=== PATIENT | female | born 1950 | race Asian ===

== ENCOUNTER 2017-08-28 09:24 | Outpatient (CLI) | payer OTHER, MEDICARE | END 2017-08-28 18:58 | disposition home or self-care (01) | LOC: MAMMO 09:24 | DX: Z12.31 Encounter for screening mammogram for malignant neoplasm of breast (principal) ==

== ENCOUNTER 2017-11-24 09:46 | Outpatient (CLI) | payer OTHER, MEDICARE | END 2017-11-24 20:05 | disposition home or self-care (01) | LOC: LABW 09:46 | DX: M10.071 Idiopathic gout, right ankle and foot (principal); M10.072 Idiopathic gout, left ankle and foot | CPT/HCPCS: 36415; 84550; 85651 ==

== ENCOUNTER 2017-12-10 10:02 | Outpatient (CLI) | payer OTHER, MEDICARE | END 2017-12-10 23:57 | disposition home or self-care (01) | LOC: LABW 10:02 | DX: M10.071 Idiopathic gout, right ankle and foot (principal) | CPT/HCPCS: 84550; 85651 ==

== ENCOUNTER 2018-02-01 09:24 | Outpatient (CLI) | payer OTHER, MEDICARE | END 2018-02-01 20:01 | disposition home or self-care (01) | LOC: LABW 09:24 | DX: M10.071 Idiopathic gout, right ankle and foot (principal); M10.072 Idiopathic gout, left ankle and foot | CPT/HCPCS: 36415; 84550 ==

== ENCOUNTER 2018-04-16 10:50 | Outpatient (CLI) | payer OTHER, MEDICARE | END 2018-04-16 19:09 | disposition home or self-care (01) | LOC: LABW 10:50 | DX: M10.071 Idiopathic gout, right ankle and foot (principal); M10.072 Idiopathic gout, left ankle and foot | CPT/HCPCS: 36415; 84550 ==

== ENCOUNTER 2018-06-09 11:28 | Outpatient (CLI) | payer OTHER, MEDICARE | END 2018-06-09 19:30 | disposition home or self-care (01) | LOC: LABW 11:28 | DX: B35.1 Tinea unguium (principal); M10.071 Idiopathic gout, right ankle and foot; M10.072 Idiopathic gout, left ankle and foot | CPT/HCPCS: 36415; 84450; 84460; 84550 ==

== ENCOUNTER 2018-07-06 12:26 | Outpatient (CLI) | payer OTHER, MEDICARE | END 2018-07-06 22:29 | disposition home or self-care (01) | LOC: LABW 12:26 | DX: B35.1 Tinea unguium (principal); M10.071 Idiopathic gout, right ankle and foot; M10.072 Idiopathic gout, left ankle and foot | CPT/HCPCS: 36415; 84450; 84460; 84550 ==

== ENCOUNTER 2018-08-03 11:23 | Outpatient (CLI) | payer OTHER, MEDICARE | END 2018-08-03 22:43 | disposition home or self-care (01) | LOC: LABW 11:23 | DX: M10.071 Idiopathic gout, right ankle and foot (principal); M10.072 Idiopathic gout, left ankle and foot | CPT/HCPCS: 36415; 84550 ==

== ENCOUNTER 2018-09-20 08:57 | Outpatient (CLI) | payer OTHER, MEDICARE | END 2018-09-20 20:29 | disposition home or self-care (01) | LOC: MAMMO 08:57 | DX: Z12.31 Encounter for screening mammogram for malignant neoplasm of breast (principal) ==

== ENCOUNTER 2018-11-04 10:11 | Outpatient (CLI) | payer OTHER, MEDICARE | END 2018-11-04 21:36 | disposition home or self-care (01) | LOC: LABW 10:11 | DX: B35.1 Tinea unguium (principal) | CPT/HCPCS: 36415; 84450; 84460 ==

== ENCOUNTER 2019-08-25 11:05 | Outpatient (CLI) | payer OTHER, MEDICARE | END 2019-08-25 20:43 | disposition home or self-care (01) | LOC: LABW 11:05 | DX: M10.171 Lead-induced gout, right ankle and foot (principal); M10.072 Idiopathic gout, left ankle and foot | CPT/HCPCS: 36415; 84550 ==

== ENCOUNTER 2019-10-07 10:19 | Outpatient (CLI) | payer OTHER, MEDICARE | END 2019-10-07 19:41 | disposition home or self-care (01) | LOC: MAMMO 10:19 | DX: Z12.31 Encounter for screening mammogram for malignant neoplasm of breast (principal) ==

== ENCOUNTER 2020-04-17 11:32 | Outpatient (CLI) | payer OTHER, MEDICARE | END 2020-04-17 20:35 | disposition home or self-care (01) | LOC: LABW 11:32 | DX: M10.071 Idiopathic gout, right ankle and foot (principal); M10.072 Idiopathic gout, left ankle and foot | CPT/HCPCS: 36415; 84550; 85651 ==

== ENCOUNTER 2020-06-29 12:18 | Outpatient (CLI) | payer OTHER, MEDICARE | END 2020-06-29 23:57 | disposition home or self-care (01) | LOC: LABW 12:18 | DX: M10.072 Idiopathic gout, left ankle and foot (principal); M10.071 Idiopathic gout, right ankle and foot | CPT/HCPCS: 36415; 84550; 85651 ==

== ENCOUNTER 2020-10-09 10:59 | Outpatient (CLI) | payer OTHER, MEDICARE | END 2020-10-09 19:13 | disposition home or self-care (01) | LOC: MAMMO 10:59 | PROVIDERS: ATTEND Internal Medicine | DX: Z12.31 Encounter for screening mammogram for malignant neoplasm of breast (principal) ==

== ENCOUNTER 2021-01-07 09:46 | Outpatient (CLI) | payer OTHER, MEDICARE | END 2021-01-07 20:45 | disposition home or self-care (01) | LOC: LABW 09:46 | PROVIDERS: ATTEND Podiatrist | DX: M10.071 Idiopathic gout, right ankle and foot (principal); M10.072 Idiopathic gout, left ankle and foot | CPT/HCPCS: 36415; 84550; 86140 ==

== ENCOUNTER 2021-06-19 10:10 | Outpatient (CLI) | payer OTHER, MEDICARE | END 2021-06-19 23:00 | disposition home or self-care (01) | LOC: US 10:10 | PROVIDERS: ATTEND Podiatrist | DX: M79.604 Pain in right leg (principal) ==

== ENCOUNTER 2021-08-13 11:38 | Outpatient (CLI) | payer OTHER, MEDICARE | END 2021-08-13 20:06 | disposition home or self-care (01) | LOC: LABW 11:38 | PROVIDERS: ATTEND Podiatrist | DX: M10.071 Idiopathic gout, right ankle and foot (principal); M10.072 Idiopathic gout, left ankle and foot | CPT/HCPCS: 36415; 84550 ==

== ENCOUNTER 2021-09-26 10:35 | Outpatient (CLI) | payer OTHER, MEDICARE ==
[2021-09-26 11:05] LABS: POTASSIUM 5.3 mmol/L (3.6-5.2)
[2021-09-26 11:19] LABS: PLATELET COUNT 257 K/uL (152-353)
== END 2021-09-26 18:54 | disposition home or self-care (01) ==
LOC: LABW 10:35
PROVIDERS: ATTEND Internal Medicine Medical Oncology
DX: I26.99 Other pulmonary embolism without acute cor pulmonale (principal)
CPT/HCPCS: 36415; 80053; 85027

== ENCOUNTER 2021-11-27 09:10 | Outpatient (CLI) | payer OTHER, MEDICARE | END 2021-11-27 18:55 | disposition home or self-care (01) | LOC: MAMMO 09:10 | PROVIDERS: ATTEND Nurse Practitioner Family | DX: Z12.31 Encounter for screening mammogram for malignant neoplasm of breast (principal) ==

== ENCOUNTER 2021-12-04 09:34 | Outpatient (CLI) | payer OTHER, MEDICARE | END 2021-12-04 18:58 | disposition home or self-care (01) | LOC: LABW 09:34 | PROVIDERS: ATTEND Podiatrist | DX: M10.071 Idiopathic gout, right ankle and foot (principal); M10.072 Idiopathic gout, left ankle and foot | CPT/HCPCS: 36415; 84550 ==

== ENCOUNTER 2022-02-07 10:35 | Outpatient (CLI) | payer OTHER, MEDICARE | END 2022-02-07 20:30 | disposition home or self-care (01) | LOC: LABW 10:35 | PROVIDERS: ATTEND Podiatrist | DX: M10.071 Idiopathic gout, right ankle and foot (principal); M10.072 Idiopathic gout, left ankle and foot | CPT/HCPCS: 36415; 84550 ==

== ENCOUNTER 2022-04-30 10:02 | Outpatient (CLI) | payer OTHER, MEDICARE ==
[2022-04-30 10:13] LABS: PLATELET COUNT 225 K/uL (152-353)
[2022-04-30 10:38] LABS: POTASSIUM 4.2 mmol/L (3.6-5.2)
== END 2022-04-30 18:54 | disposition home or self-care (01) ==
LOC: LABW 10:02
PROVIDERS: ATTEND Nurse Practitioner Family
DX: I26.99 Other pulmonary embolism without acute cor pulmonale (principal); Z79.01 Long term (current) use of anticoagulants
CPT/HCPCS: 36415; 80053; 85027

== ENCOUNTER 2022-06-03 10:45 | Outpatient (CLI) | payer OTHER, MEDICARE | END 2022-06-03 21:37 | disposition home or self-care (01) | LOC: US 10:45 | PROVIDERS: ATTEND Internal Medicine | DX: M79.605 Pain in left leg (principal); M79.604 Pain in right leg; R60.0 Localized edema; I73.9 Peripheral vascular disease, unspecified; N95.8 Other specified menopausal and perimenopausal disorders; E11.65 Type 2 diabetes mellitus with hyperglycemia ==

== ENCOUNTER 2022-06-10 12:29 | Outpatient (CLI) | payer OTHER, MEDICARE | END 2022-06-10 19:01 | disposition home or self-care (01) | LOC: MAMMO 12:29 | PROVIDERS: ATTEND Internal Medicine | DX: M79.605 Pain in left leg (principal); M79.604 Pain in right leg; R60.0 Localized edema; I73.9 Peripheral vascular disease, unspecified; N95.8 Other specified menopausal and perimenopausal disorders; E11.65 Type 2 diabetes mellitus with hyperglycemia; N64.59 Other signs and symptoms in breast ==

== ENCOUNTER 2022-11-10 11:07 | Outpatient (CLI) | payer OTHER, MEDICARE ==
[2022-11-10 11:46] LABS: PLATELET COUNT 257 K/uL (152-353)
[2022-11-10 12:00] LABS: POTASSIUM 3.5 mmol/L (3.6-5.2)
== END 2022-11-10 19:24 | disposition home or self-care (01) ==
LOC: LABW 11:07
PROVIDERS: ATTEND Internal Medicine Hematology & Oncology
DX: I26.99 Other pulmonary embolism without acute cor pulmonale (principal); Z79.01 Long term (current) use of anticoagulants; R79.89 Other specified abnormal findings of blood chemistry
CPT/HCPCS: 36415; 80053; 82607; 82728; 82746; 83540; 83550; 85027

== ENCOUNTER 2023-01-29 12:51 | Outpatient (CLI) | payer OTHER, MEDICARE | END 2023-01-29 20:50 | disposition home or self-care (01) | LOC: MAMMO 12:51 | PROVIDERS: ATTEND Internal Medicine | DX: Z12.31 Encounter for screening mammogram for malignant neoplasm of breast (principal) ==

== ENCOUNTER 2023-04-15 10:42 | Outpatient (CLI) | payer OTHER, MEDICARE | END 2023-04-15 20:08 | disposition home or self-care (01) | LOC: RAD 10:42 | PROVIDERS: ATTEND Internal Medicine | DX: Z01.818 Encounter for other preprocedural examination (principal) ==

== ENCOUNTER 2023-04-28 11:27 | Outpatient (CLI) | payer OTHER, MEDICARE ==
[2023-04-28 11:48] LABS: PLATELET COUNT 284 K/uL (152-353)
[2023-04-28 18:43] LABS: POTASSIUM 4.5 mmol/L (3.6-5.2)
== END 2023-04-28 19:24 | disposition home or self-care (01) ==
LOC: LABW 11:27
PROVIDERS: ATTEND Nurse Practitioner Family
DX: I26.99 Other pulmonary embolism without acute cor pulmonale (principal); Z79.01 Long term (current) use of anticoagulants; R79.89 Other specified abnormal findings of blood chemistry
CPT/HCPCS: 36415; 80053; 82728; 83540; 85027

== ENCOUNTER 2023-06-01 11:15 | Outpatient (CLI) | payer OTHER, MEDICARE ==
[2023-06-01 12:24] LABS: PLATELET COUNT 244 K/uL (152-353)
[2023-06-01 12:42] LABS: POTASSIUM 4.2 mmol/L (3.6-5.2)
== END 2023-06-01 21:27 | disposition home or self-care (01) ==
LOC: LABW 11:15
PROVIDERS: ATTEND Nurse Practitioner Family
DX: I26.99 Other pulmonary embolism without acute cor pulmonale (principal); Z79.01 Long term (current) use of anticoagulants; R79.89 Other specified abnormal findings of blood chemistry
CPT/HCPCS: 36415; 80053; 82728; 83540; 83550; 85027; 86037; 86038; 86225

== ENCOUNTER 2023-06-03 14:52 | Outpatient (CLI) | payer OTHER, MEDICARE | END 2023-06-03 19:00 | disposition home or self-care (01) | LOC: LABW 14:52 | PROVIDERS: ATTEND Nurse Practitioner Family | DX: I26.99 Other pulmonary embolism without acute cor pulmonale (principal); Z79.899 Other long term (current) drug therapy; R79.89 Other specified abnormal findings of blood chemistry | CPT/HCPCS: 36415; 82728; 83540; 83550 ==